=== PATIENT | female | born 1960 | race Caucasian/White ===

== ENCOUNTER 2019-07-31 01:19 | Inpatient (IN) | payer OTHER, MEDICARE ==
[2019-07-31] VITALS (7 sets, daily range): BP systolic 129–162; BP diastolic 45–84
[~2019-07-31] VITALS: Ht 152.4 cm; Wt 80.8 kg
[~2019-07-31 01:19] MED LIST: 8 HOUR PAIN RE650 M1 PO; ALBUTEROL INH INH; ALBUTEROL2.5 MG/31 INH; ALLERCLEAR10 MG PO; ALPRAZOLAM 0.50.5 M1 PO; ASPIRIN325 PO; ATORVASTATIN CA40 MG PO; AUGMENTIN 875-1 EACH PO; AUGMENTIN 875875 M1 PO; BIAXIN 250MG T250 M1; BIOTIN300 MCG PO; BUPRENORPHINE HC8 MG PO; CLOPIDOGREL75 MG PO; COREG6.25 MG PO; DIFLUCAN40 MG/1 ML PO; DOXEPIN 10 MG C10 MG PO; DOXYCYCLINE 10100 MG PO; DUONEB 2.5-0.5 M3 ML INH; HYDROXYZINE HCL10 M1 PO; HYDROXYZINE HCL25 M1 PO; IBUPROFEN 200200 M1 PO; IBUPROFEN 800800 M1 PO; IBUPROFEN200 M2; INSULIN; KEPPRA 500 MG500 MG PO; LANTUSSOLASTAR SUBQ; LASIX 20 MG TAB20 MG PO; LEVAQUIN 750 M750 MG PO; LISINOPRIL20 MG PO; LYRICA 75 MG CA75 MG PO; METHADONE HCL 110 MG PO; METHADONE HCL40 MG PO; MIRALAX17 GM PO; NEURONTIN 300300 M1 PO; NICODERM CQ1 EAC1 TRANSDERM; PREDNISONE 10 M10 M1 PO; PREDNISONE 10 M10 MG PO; PREDNISONE 20 M20 MG PO; PREDNISONE50 MG PO; PROAIR HFA8.5 GM; PROAIR HFA8.5 GM INH; RESTORIL30 MG PO; SINGULAIR 10 MG10 M1 PO; SINGULAIR4 MG; STERAPRED DS10 MG; TESSALON PERLE100 MG PO; TOPROL XL100 MG PO; TYLENOL325 MG PO; ULTRACET TABLE1 EACH PO; VENTOLIN HFA 1818 GM INH; VICTOZA0.6 MG/0.1 SQ; VICTOZA0.6 MG/0.1 SUBQ; XANAX 0.25 MG0.25 MG PO; ZESTRIL30 MG PO; ZOFRAN ODT4 MG DISSOLVE; ZPAK PO
[2019-07-31 02:07] LABS: HEMATOCRIT 47.4 % (37.0-47.0); HEMOGLOBIN 15.3 gm/dL (12.0-15.0); MCH 28.7 pg (26.0-34.0); MCHC 32.3 g/dL (28.0-37.0); MPV 7.7 fl. (7.2-11.1); NUCLEATED RBCS 0 /100WBC; PLATELET COUNT* 232 thou/uL (150-400); RBC 5.32 mil/uL (4.20-5.00); RDW-CV 13.7 % (10.5-14.5); WBC 21.3 thou/uL (4.0-11.0)
[2019-07-31 02:12] LABS: INR 1.1
[2019-07-31 02:19] LABS: PO2 94.5 mmHg (75.0-100.0)
[2019-07-31 02:21] LABS: PCO2 50.2 mmHg (35.0-45.0); pH 7.298 (7.340-7.450)
[2019-07-31 02:25] LABS: CALCIUM 8.9 mg/dL (8.5-10.1); CREATININE 2.2 mg/dL (0.6-1.3); POTASSIUM 4.6 mmol/L (3.5-5.1)
[2019-07-31 02:39] LABS: ALBUMIN 3.1 g/dL (3.4-5.0); TOTAL PROTEIN 6.3 g/dL (6.4-8.2)
[2019-07-31 04:07] LABS: ABSOLUTE LYMPHOCYTES 3.2 thou/uL (0.8-5.3); ABSOLUTE MONOCYTES 1.5 thou/uL (0.0-1.2); ABSOLUTE NEUTROPHILS 16.6 thou/uL (1.6-8.1)
[2019-07-31 04:08] LABS: PLATELET ESTIMATE ADEQUATE
[2019-07-31 11:28] LABS: URINE BILIRUBIN NEGATIVE (Negative); URINE BLOOD 3+ (Negative); URINE CLARITY CLEAR; URINE COLOR YELLOW; URINE GLUCOSE-RANDOM NEGATIVE (Negative); URINE KETONES NEGATIVE (Negative); URINE LEUKOCYTES-REFLEX 3+ (Negative); URINE NITRITE-REFLEX NEGATIVE (Negative); URINE PROTEIN TRACE (Negative); URINE UROBILINOGEN 0.2 E.U./dl (0.2-1.0)
[2019-07-31 11:38] LABS: BACTERIA-REFLEX 1-9 Few /HPF (None Seen); CRYSTALS None Seen /LPF (None Seen); MUCUS None Seen strn/LPF (None Seen); RBC CASTS 0-3 /LPF; SQUAMOUS 0-3 Few /LPF (0-3); URINE RBC >20 Many /HPF (0-2); URINE WBC-REFLEX >25 Many /HPF (0-5)
[2019-07-31 16:52] LABS: AMP/METHAMP Negative (Negative); BARBITURATES Negative (Negative); BENZODIAZEPINES POSITIVE (Negative); COCAINE Negative (Negative); METHADONE Negative (Negative); OPIATES POSITIVE (Negative); PCP Negative (Negative); THC Negative (Negative)
[2019-08-01] VITALS: BP 109/51
[2019-08-01 04:00] VITALS: BP 146/47
[2019-08-01 05:29] LABS: HEMATOCRIT 38.3 % (37.0-47.0); MCH 28.4 pg (26.0-34.0); MCHC 31.9 g/dL (28.0-37.0); MPV 7.8 fl. (7.2-11.1); RBC 4.31 mil/uL (4.20-5.00); RDW-CV 13.9 % (10.5-14.5); WBC 21.6 thou/uL (4.0-11.0)
[2019-08-01 05:35] LABS: HEMOGLOBIN 12.2 gm/dL (12.0-15.0)
[2019-08-01 05:39] LABS: ALBUMIN 1.9 g/dL (3.4-5.0); CALCIUM 7.2 mg/dL (8.5-10.1); CREATININE 1.7 mg/dL (0.6-1.3); POTASSIUM 4.5 mmol/L (3.5-5.1); TOTAL BILIRUBIN 0.4 mg/dL (<0.1-1.0); TOTAL PROTEIN 5.7 g/dL (6.4-8.2)
[2019-08-01 11:21] VITALS: BP 130/82
--- NOTE | 2019-08-01 11:32 | EKG ---
[place] [address] ELECTROCARDIOGRAM REPORT Name: ANIL PAYNE Room: [address] ADM IN [facility]#: [id number] Admission: 07/31/19 Attend Phys: Brenden Tate MD Discharge: Date of : 56 Report #: [id number] THIS REPORT FOR: //name// [facility] ED Test Date: 2019-07-31 Test Time: 01:27:15 Pat Name: ANIL PAYNE Department: Room: 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[id number] Requested By: Regino Alberts Order Number: [id number] MD: Tl Holden Measurements Intervals [place] Rate: 90 P: 74 RI: 131 QRS: 42 QRSD: 134 T: 26 QT: 370 QTc: 453 Interpretive Statements Sinus rhythm Probable left atrial enlargement Right bundle branch block Baseline wander in lead(s) V1 Compared to ECG 05/27/2017 14:44:14 Right bundle-branch block now present Atrial premature complex(es) no longer present Electronically Signed On 08-01-2019 11:32:04 MANUFACTURING SUPERVISOR by Tl Holden [email or web address] <ELECTRONICALLY SIGNED> By: Tl Holden MD, [facility] 08/01/19 1132 0127 [id number] Tl Holden MD, [facility] /EPI
[2019-08-01 17:39] VITALS: BP 147/74
[2019-08-01 20:00] VITALS: BP 153/64
[2019-08-02] VITALS: BP 157/56
[2019-08-02 04:00] VITALS: BP 125/60
[2019-08-02 08:00] VITALS: BP 145/74
[2019-08-02 10:35] LABS: ABSOLUTE BASOPHILS 0.1 thou/uL (0.0-0.2); ABSOLUTE EOSINOPHILS 0.4 thou/uL (0.0-0.7); ABSOLUTE LYMPHOCYTES 0.8 thou/uL (0.8-5.3); ABSOLUTE MONOCYTES 0.5 thou/uL (0.0-1.2); ABSOLUTE NEUTROPHILS 14.4 thou/uL (1.6-8.1); BASOPHILS 0.4 %; EOSINOPHILS 2.7 %; HEMATOCRIT 36.5 % (37.0-47.0); HEMOGLOBIN 11.9 gm/dL (12.0-15.0); MCH 28.8 pg (26.0-34.0); MCHC 32.4 g/dL (28.0-37.0); MCV 88.8 fL (80.0-100.0); MONOCYTES 2.9 %; MPV 7.9 fl. (7.2-11.1); NUCLEATED RBCS 0 /100WBC; PLATELET COUNT* 201 thou/uL (150-400); RBC 4.11 mil/uL (4.20-5.00); RDW-CV 14.4 % (10.5-14.5); WBC 16.2 thou/uL (4.0-11.0)
[2019-08-02 10:43] LABS: CALCIUM 6.7 mg/dL (8.5-10.1); CREATININE 1.4 mg/dL (0.6-1.3); POTASSIUM 4.7 mmol/L (3.5-5.1)
[2019-08-02 10:57] LABS: ALBUMIN 1.8 g/dL (3.4-5.0); TOTAL BILIRUBIN 0.3 mg/dL (<0.1-1.0); TOTAL PROTEIN 5.8 g/dL (6.4-8.2)
[2019-08-02 11:32] VITALS: BP 157/61
--- NOTE | 2019-08-02 11:32 | CON ---
[address] [address] CONSULTATION Name: ANIL PAYNE Room: [address] [place] [facility]#: [id number] Admission: 07/31/19 Attend Phys: Brenden Tate MD Discharge: Date of : 56 Report #: [id number] THIS REPORT FOR: //name// CC: [facility] Brenden Rivero DATE OF SERVICE: 07/31/2019 REASON FOR CONSULTATION: Right obstructing ureteropelvic junction stone. HISTORY OF PRESENT ILLNESS: The patient is a 59-year-old female with significant COPD, who presented last night to the ER with right flank pain. She at that point had nausea, but no fever or chills or vomiting. She has no prior history of stones. CT scan showed 11 x 7 x 12 mm right UPJ stone resulting in hydronephrosis with forniceal rupture. She was also noted to have left renal nonobstructive stone, largest 5 mm. The patient spiked a temperature this morning of 100.1. LABORATORY DATA: Labs on admission showed a white count of 21.3. Urinalysis has not yet been done. Creatinine is up to 2.2. It looks like her baseline is around 1.2 to 1.5. I was not notified of her admission until this morning about an hour ago. PAST MEDICAL HISTORY: Includes COPD, hypertension, hyperlipidemia, diabetes, diabetic neuropathy, and Charcot foot. PAST SURGICAL HISTORY: Includes lap band, hysterectomy, incision and drainage of labial abscess. CURRENT MEDICATIONS: Reviewed. Please see inpatient medical record. ALLERGIES: None. FAMILY HISTORY: Noncontributory. SOCIAL HISTORY: The patient is a tobacco, cigarette user. She denies any alcohol or drug use. REVIEW OF SYSTEMS: Twelve-point review of systems is performed and is negative except as noted above in HPI. PHYSICAL EXAMINATION: VITAL SIGNS: Temperature 37.1, pulse 88, blood pressure 158/60, respirations 18. She is 95% on 3 liters. GENERAL: She is a well-developed, well-nourished [place]. [place] [address] CONSULTATION Name: ANIL PAYNE Paolo Room: [address] [place] [facility]#: [id number] Admission: 07/31/19 Attend Phys: Brenden Tate MD Discharge: Date of : 56 Report #: [id number] distress due to pain and appears ill. HEENT: Normocephalic, atraumatic. RESPIRATIONS: Unlabored. HEART: Regular. ABDOMEN: Soft, nondistended with tenderness on the right side. BACK: She has right CVA tenderness, none on the left. SKIN: Pale and mottled. EXTREMITIES: Without cyanosis or edema. SKIN: Without rashes. LABORATORY DATA: White count 21.3, hemoglobin 15.3, platelets 232. Her sodium 138, potassium 4.6, chloride 99, CO2 27, BUN 27, creatinine 2.2, glucose 138. Her lactic acid last night was 1.4. Urinalysis has been ordered, but has not yet received. Blood cultures have been taken and are pending. CT was reviewed and is as above per HPI. ASSESSMENT: 1. Right ureteropelvic junction large obstructing stone. 2. Developing likely urosepsis. 3. Acute renal failure. PLAN: The patient needs emergent right ureteral stent placement. I discussed with the patient and her significant other. This will be needed along with antibiotic therapy until she is recovered. Once she has recovered completely from her illness and completed full antibiotic course, she will need stone treatment. They understand the stent is not a permanent structure and how important followup is. We will send her urine intraoperatively for culture. Discussed gravity of the situation, the patient's understands and the patient wishes to proceed with procedure. <ELECTRONICALLY SIGNED> By: Ava Thibodeaux MD 08/02/19 1132 0949 [id number] Thibodeaux MD /nt
--- NOTE | 2019-08-02 11:34 | OP ---
[address] [address] OPERATIVE REPORT Name: ANIL PAYNE Room: [address] IN .R.#: [id number] Admission: 07/31/19 Attend Phys: Brenden Tate MD Discharge: Date of : 56 Report #: [id number] THIS REPORT FOR: //name// CC: Brenden Rivero DATE OF SERVICE: 07/31/2019 PREOPERATIVE DIAGNOSES: Right proximal obstructing large ureteral stone, fever, urosepsis. POSTOPERATIVE DIAGNOSES: Right proximal obstructing large ureteral stone, fever, urosepsis. PROCEDURE: Cystourethroscopy, right retrograde pyelogram, right ureteral stent placement (6 x 28). SURGEON: Ava Thibodeaux MD ANESTHESIA: General. ESTIMATED BLOOD LOSS: Minimal. COMPLICATIONS: None. SPECIMENS: Urine for culture and sensitivity. INDICATIONS FOR PROCEDURE: The patient is a 59-year-old female with multiple comorbidities including significant COPD, who presented with right flank pain and a large proximal obstructing ureteral stone. Her white count was elevated and she had a fever this morning. Emergent stent placement was indicated. Risks of procedure were discussed with the patient and her including risk of infection, bleeding; injury to the urethra, bladder, or ureter; need for secondary procedures, stent pain, cardiopulmonary complications or even . They voiced understanding and she wished to proceed. DESCRIPTION OF PROCEDURE: After informed consent was obtained, the patient was taken back to the operating suite and placed supine. After induction of general anesthesia, she was placed in dorsal lithotomy position. Genitalia prepped and draped in standard fashion. Rigid cystoscopy was performed. Urethra and bladder mucosa were inspected and were normal except for some mild hyperemia of the trigone. She had no evidence of any bladder tumors. Orifices were in orthotopic position. Retrograde was first performed on the right side with a cone tip catheter. It was difficult to get the contrast to pass past the proximal ureter and immediately, the retrograde did not look normal. I was able to get a bit of her upper pole to fill out, [place] [address] OPERATIVE REPORT Name: ANIL PAYNE Room: [address] IN [facility]#: [id number] Admission: 07/31/19 Attend Phys: Brenden Tate MD Discharge: Date of : 56 Report #: [id number] hydronephrotic and she appeared to already have some extravasation around the kidney. She did have forniceal rupture noted on CT scan, so this is likely explanation for that finding. I threaded the wire then, a sensor wire up into the ureter, past the stone with some difficulty. It took a sharp turn laterally and I could not tell if this was going into a lower pole or if this was actually outside the kidney. I threaded the 5-Macedonian ureteral catheter over the wire, removed the wire and injected contrast again. Again, it was difficult to get this collecting system to fill out as there was a decent amount of extravasation. With manipulation, I put the wire back through the 5-Macedonian open-ended catheter and with difficulty, I was able to finally get it to go into the upper pole where there was good contrast opacification. So, I was confident that the wire was in the upper pole at that point. We removed the open-ended catheter and then removed the scope and threaded a dual lumen to inject some additional contrast to see if I could get this to opacify further, as her retrograde just still does not look normal. This did confirm some contrast in her kidney and the wire could clearly be seen in the upper pole, but her proximal ureter definitely did not look normal and it was difficult to get that to fill out with contrast, but given that wire had traversed the area and was in the upper pole, I felt it was okay to just go ahead and place the stent. A 6-Macedonian x 28 cm double-J stent was threaded over the wire. Good curl was seen within the upper pole and good curl was seen within the bladder under direct visualization. I could see still some extravasation along the retroperitoneum along the ureter and some medial to the kidney, so I question whether maybe she had an area of extravasation where the stone had been due to impaction, but nevertheless, the stent was able to be placed and we will just have to let her heal and continue antibiotics. Likely, I will leave leave her stent for a prolonged period before attempting ureteroscopy, given difficulty with placement today. The scope was removed and a 16-Macedonian Will catheter was placed to dependent drainage. B and O suppository 60 mg was placed per rectum for postoperative discomfort. She was awoken, extubated, and taken to recovery in serious but stable condition. She will be admitted back to telemetry as long as her vitals remained stable. If not, she will be transferred to the ICU, but as of time in recovery room, her vitals were remaining stable. <ELECTRONICALLY SIGNED> By: Ava Thibodeaux MD 08/02/19 1134 1047 [id number] Thibodeaux MD /nt
[2019-08-02 20:00] VITALS: BP 181/79
[2019-08-03 04:00] VITALS: BP 189/81
[2019-08-03 05:30] VITALS: BP 156/77
[2019-08-03 07:26] LABS: ABSOLUTE EOSINOPHILS 0.5 thou/uL (0.0-0.7); ABSOLUTE MONOCYTES 0.9 thou/uL (0.0-1.2); ABSOLUTE NEUTROPHILS 7.5 thou/uL (1.6-8.1); BASOPHILS 0.3 %; EOSINOPHILS 5.5 %; HEMATOCRIT 35.8 % (37.0-47.0); HEMOGLOBIN 11.7 gm/dL (12.0-15.0); LYMPHOCYTES 9.9 %; MCHC 32.8 g/dL (28.0-37.0); MCV 88.3 fL (80.0-100.0); MPV 7.5 fl. (7.2-11.1); NUCLEATED RBCS 0 /100WBC; PLATELET COUNT* 230 thou/uL (150-400); POLYS 75.3 %; RBC 4.05 mil/uL (4.20-5.00); RDW-CV 14.4 % (10.5-14.5)
[2019-08-03 07:40] LABS: CALCIUM 7.2 mg/dL (8.5-10.1); CREATININE 1.2 mg/dL (0.6-1.3); POTASSIUM 4.8 mmol/L (3.5-5.1)
[2019-08-03 08:00] VITALS: BP 159/79
[2019-08-03 10:28] VITALS: BP 159/79
--- NOTE | 2019-08-03 11:24 | CON ---
[address] [address] CONSULTATION Name: ANIL PAYNE Room: [address] IN .R.#: [id number] Admission: 07/31/19 Attend Phys: Brenden Tate MD Discharge: Date of : 56 Report #: [id number] THIS REPORT FOR: //name// CC: Brenden Bonilla [facility] DATE OF SERVICE: 08/02/2019 INFECTIOUS DISEASE CONSULTATION ATTENDING PHYSICIAN: Brenden Tate M.D. REASON FOR EVALUATION: Complicated urinary tract infection with obstructive uropathy, proximal right renal ____ ureteral obstructing stone with pyelonephritis. Chart reviewed. Patient examined. HISTORY OF PRESENT ILLNESS: This is a 59-year-old woman with longstanding COPD, O2 requiring, who presented to the Emergency Room with complaints of right upper quadrant and right flank pain, somewhat abrupt onset the day prior to her presentation with associated nausea. It is not clear if she had any fevers. She underwent evaluation, lactic acid was 1.4. CT of the abdomen and pelvis showed right obstructive uropathy with large obstructing calculus located in the ureteropelvic junction, mild hydronephrosis. She did undergo operative urgency with a cystourethroscopy, right retrograde pyelogram, and right ureteral stent placement. She has been placed empirically on piperacillin and tazobactam. Operative cultures are in progress. Blood cultures are sterile thus far. She appears still quite ill. She is not encephalopathic. She is maintained on 3-4 liters of supplemental oxygen per her baseline. ALLERGIES: None known. MEDICATIONS: Include Zosyn, p.r.n. fentanyl, ondansetron, Tylenol, ipratropium and albuterol inhaler. PAST MEDICAL HISTORY: As noted above, O2-requiring COPD, hypertension, previous Lap-Band surgery that she had in [place], has not been able to reverse it, hyperlipidemia, history of recurrent pneumonitis, diabetes mellitus with neuropathy, Charcot foot changes, and atopic dermatitis. SOCIAL HISTORY: Long time smoker, reports recently having quit. No illicit drug use. No ethanol. FAMILY HISTORY: [place] [address] CONSULTATION Name: ANIL PAYNE Room: [address]#: [id number] Admission: 07/31/19 Attend Phys: Brenden Tate MD Discharge: Date of : 56 Report #: [id number] REVIEW OF SYSTEMS: Denies significant gastrointestinal-related complaints. PHYSICAL EXAMINATION: GENERAL: She appears chronically ill, undernourished, pleasant and cooperative. VITAL SIGNS: Temperature 97.8, pulse 78, respirations 17, blood pressure 157/61. SKIN: Warm and dry. No rashes. HEENT: Nasal cannula oxygen in place. Normocephalic. Extraocular muscles intact. NECK: Supple. LUNGS: Scattered coarse breath sounds, diminished overall. HEART: Regular. I do not appreciate a murmur. ABDOMEN: Soft, nontender, and nondistended. GENITOURINARY AND RECTAL: Deferred. LABORATORY DATA: Electrolytes: Sodium 140, potassium 4.7, chloride 108, bicarbonate 21, anion gap of 11, BUN and creatinine 28 and 1.4, glucose of 148, albumin of 1.8, total protein 5.8. LFTs are unremarkable. White count today is 16.2, H and H 11.9 and 36.5, and platelets of 201. Blood cultures are sterile thus far from the 24th. Prealbumin is low at 12.3. Drug screen is positive for benzodiazepines as well as opiates. ASSESSMENT AND PLAN: Complicated urinary tract infection with obstructive uropathy, right proximal stone remains quite tenuous at this point. We will continue parenteral therapy, potentially transition to oral antibiotics prior to her discharge, which I expect in the next 1-2 days. She is maintained on her baseline oxygen, although she is certainly at risk for infectious complications including pneumonitis. We will add incentive spirometry. In all likelihood, she will need a couple of weeks of antimicrobial therapy. <ELECTRONICALLY SIGNED> By: Young Rodríguez MD 08/03/19 1124 1145 [id number] Rodríguez MD /nt
[2019-08-03] MEDS ORDERED: AUGMENTIN 875-1 EACH PO (12:00)
[2019-08-03] MEDS ORDERED: DIFLUCAN200 MG PO (12:04)
[2019-08-03 12:20] VITALS: BP 192/96
== END 2019-08-03 12:30 | disposition home or self-care (01) | DRG 853 ==
LOC: M.ERS 01:19 → M.TBA-ER 04:09 → M.2W 04:09
PROVIDERS: Emergency Medicine; Surgery; ADMIT Internal Medicine
PROC: 0T768DZ Dilation of Right Ureter with Intraluminal Device, Via Natural or Artificial Opening Endoscopic (ICD-10-PCS; principal; 2019-07-31)
PROC: BT1D1ZZ Fluoroscopy of Right Kidney, Ureter and Bladder using Low Osmolar Contrast (ICD-10-PCS; principal; 2019-07-31)
DX: A41.9 Sepsis, unspecified organism (principal); J96.21 Acute and chronic respiratory failure with hypoxia; J96.22 Acute and chronic respiratory failure with hypercapnia; N17.9 Acute kidney failure, unspecified; N13.6 Pyonephrosis; J44.9 Chronic obstructive pulmonary disease, unspecified; I10 Essential (primary) hypertension; E78.5 Hyperlipidemia, unspecified; E11.40 Type 2 diabetes mellitus with diabetic neuropathy, unspecified; K80.20 Calculus of gallbladder without cholecystitis without obstruction; L20.9 Atopic dermatitis, unspecified; F17.210 Nicotine dependence, cigarettes, uncomplicated; N13.9 Obstructive and reflux uropathy, unspecified; E11.51 Type 2 diabetes mellitus with diabetic peripheral angiopathy without gangrene; Z90.710 Acquired absence of both cervix and uterus; Z79.899 Other long term (current) drug therapy

== ENCOUNTER → 2019-08-25 | Day surgery (SDC) | payer OTHER, MEDICARE ==
[~2019-08-25] MED LIST changes: +ASPIR-LOW81 MG PO; +DIFLUCAN200 MG PO; +DUPIXENT300 MG/2 M SUBQ; +LEVEMIR100 UNIT/1 SUBQ; +LEVSIN-SL0.125 MG SUBLING; +NORCO 5-325 TA1 EAC2 PO
--- NOTE | 2019-08-25 17:54 | OP ---
[facility] [address] [place] [address] OPERATIVE REPORT Name: ANIL PAYNE Room: [facility]#: [id number] Admission: 08/25/19 Attend Phys: Ava Thibodeaux, Discharge: Date of : 56 Report #: [id number] THIS REPORT FOR: //name// CC: [facility] Ava Thibodeaux DATE OF SERVICE: 08/25/2019 PREOPERATIVE DIAGNOSIS: Right ureteral stone. POSTOPERATIVE DIAGNOSIS: Right ureteral stone. PROCEDURE: Cystourethroscopy, right ureteral stent removal, right retrograde pyelogram, right ureteroscopy, laser lithotripsy, basket extraction of stone and right ureteral stent placement (6-Guyanese x 26 cm). SURGEON: Ava Thibodeaux M.D. ANESTHESIA: General. ESTIMATED BLOOD LOSS: None. COMPLICATIONS: None. SPECIMENS: Stone. INDICATIONS FOR PROCEDURE: The patient is a 59-year-old female who underwent right ureteral stent placement on 07/31/2019 for an infected stone. She has completed antibiotic therapy and presents now for stone treatment. Risks of procedure were discussed including but not limited to infection, bleeding, injury to urethra, bladder, ureter, need for secondary procedures, stent pain, cardiopulmonary complications. Voiced understanding and wished to proceed. DESCRIPTION OF PROCEDURE: After informed consent was obtained, the patient was taken back to the operating suite and placed supine. After induction of general anesthesia, she was placed in dorsal lithotomy position. Genitalia prepped and draped in standard fashion. Rigid cystoscopy was performed. Urethra and bladder mucosa were normal. Ureteral orifices were orthotopic in position. The stent was seen protruding from the right UO and was externalized at the meatus. There was no encrustation. A sensor wire was threaded through the stent up into the kidney without difficulty. The stone could be seen on x-ray and had migrated into the renal pelvis. Using a dual lumen, a retrograde was performed and this revealed a normal retrograde with the exception of the filling defect of the stone in the renal pelvis. A second wire was placed. The dual lumen was removed and the 08/20 ureteral access sheath was placed[place] [address] OPERATIVE REPORT Name: ANIL PAYNE Room: [facility]#: [id number] Admission: 08/25/19 Attend Phys: Ava Thibodeaux, Discharge: Date of : 56 Report #: [id number] Flexible scope was advanced up into the kidney. She did have some edema of the proximal ureter and UPJ area. The stone was encountered in the renal pelvis and blew back into the upper pole. This is where it was lasered with the holmium laser into small fragments. Pieces were basketed with the 0 tip nitinol basket and extracted and sent for specimen. Anything remaining was dusted and should be passable. All calices were then carefully inspected. There were no other stones seen. The scope was backed out under direct vision along with the sheath, there was no injury from the sheath. Prior to removing the scope, I injected contrast again to delineate the collecting system for stent placement. This revealed no extravasation or filling defects. A 6-Guyanese x 26 cm double-J stent was threaded over the remaining safety wire. The curl was seen within the renal pelvis under fluoroscopy and good curl was seen within the bladder once the cystoscope was reintroduced. The bladder was then drained and the scope was removed, 5 mL lidocaine jelly were placed per urethra for local anesthesia and a 60 mg B and O suppository was placed per rectum for postoperative discomfort. She was awoken, extubated, and taken to recovery in satisfactory condition. She will be dismissed home and follow up with me in 1-2 weeks with a KUB for stent removal. <ELECTRONICALLY SIGNED> By: Ava Thibodeaux MD 08/25/19 1754 1337 [id number] Thibodeaux MD /nt
== END | disposition home or self-care (01) ==
LOC: M.SUR 06:28
DX: N20.1 Calculus of ureter (principal); I11.0 Hypertensive heart disease with heart failure; I50.9 Heart failure, unspecified; E11.40 Type 2 diabetes mellitus with diabetic neuropathy, unspecified; E78.5 Hyperlipidemia, unspecified; J44.9 Chronic obstructive pulmonary disease, unspecified; Z98.890 Other specified postprocedural states; Z79.899 Other long term (current) drug therapy; Z79.82 Long term (current) use of aspirin; Z90.710 Acquired absence of both cervix and uterus; Z87.01 Personal history of pneumonia (recurrent); Z87.891 Personal history of nicotine dependence

== ENCOUNTER 2020-01-28 20:19 | Inpatient (IN) | payer OTHER, MEDICARE ==
[~2020-01-28] VITALS: Ht 157.5 cm; Wt 73.0 kg
[2020-01-28 20:20] VITALS: BP 157/54
[2020-01-28 20:47] LABS: ABSOLUTE BASOPHILS 0.1 thou/uL (0.0-0.2); ABSOLUTE LYMPHOCYTES 3.7 thou/uL (0.8-5.3); ABSOLUTE MONOCYTES 0.3 thou/uL (0.0-1.2); ABSOLUTE NEUTROPHILS 8.3 thou/uL (1.6-8.1); BASOPHILS 0.9 %; EOSINOPHILS 0.3 %; HEMOGLOBIN 12.7 gm/dL (12.0-15.0); LYMPHOCYTES 29.6 %; MCH 28.4 pg (26.0-34.0); MCV 91.7 fL (80.0-100.0); MONOCYTES 2.3 %; MPV 7.8 fl. (7.2-11.1); NUCLEATED RBCS 0 /100WBC; PLATELET COUNT* 231 thou/uL (150-400); POLYS 66.9 %; RBC 4.47 mil/uL (4.20-5.00); RDW-CV 15.6 % (10.5-14.5); WBC 12.4 thou/uL (4.0-11.0)
[2020-01-28 20:59] LABS: APTT 24.7 Seconds (25.0-31.3); PROTIME 10.7 Seconds (9.20-11.50)
[2020-01-28 21:01] LABS: CREATININE 2.6 mg/dL (0.6-1.3)
[2020-01-28 21:04] LABS: POTASSIUM 8.2 mmol/L (3.5-5.1)
[2020-01-28 21:15] LABS: ALBUMIN 2.7 g/dL (3.4-5.0); CK-MB MASS 0.8 ng/mL (<0.5-3.6); MAGNESIUM 2.2 mg/dL (1.8-2.4); TOTAL BILIRUBIN 0.5 mg/dL (<0.1-1.0); TOTAL PROTEIN 5.3 g/dL (6.4-8.2)
[2020-01-28 21:37] LABS: CALCIUM 7.6 mg/dL (8.5-10.1); CREATININE 2.5 mg/dL (0.6-1.3)
[2020-01-28 21:41] VITALS: BP 69/52
[2020-01-28 21:42] LABS: POTASSIUM 7.9 mmol/L (3.5-5.1)
[2020-01-28 22:13] LABS: BE -13.7 mmol/L (-2 to +3); PO2 90.1 mmHg (75.0-100.0)
[2020-01-28 22:19] LABS: PCO2 58.3 mmHg (35.0-45.0)
[2020-01-28 23:08] VITALS: BP 84/46
[2020-01-29] VITALS (22 sets, daily range): BP systolic 80–123; BP diastolic 36–65
[2020-01-29] MEDS ORDERED: PREGABALIN50 MG PO (03:49)
[2020-01-29] MEDS ORDERED: METFORMIN HCL500 M3 PO (03:50)
[2020-01-29] MEDS ORDERED: NORVASC 2.5 MG2.5 M1 PO (03:51)
[2020-01-29] MEDS ORDERED: CARVEDILOL12.5 MG PO (03:52)
[2020-01-29] MEDS ORDERED: ESCITALOPRA5 MG/5 ML PO (03:52)
[2020-01-29] MEDS ORDERED: ROSUVASTATIN CA40 MG PO (03:53)
[2020-01-29] MEDS ORDERED: FENOFIBRATE160 MG PO (03:54)
[2020-01-29] MEDS ORDERED: HYDRALAZINE 5050 MG PO (03:54)
[2020-01-29] MEDS ORDERED: PREDNISONE 5 MG5 M1 PO (03:55)
[2020-01-29 03:56] LABS: ANION GAP 7 mmol/L (7-16); BUN 26 mg/dL (7-18); CHLORIDE 106 mmol/L (98-107); CHOLESTEROL 131 mg/dL (<200); CO2 28 mmol/L (21-32); GLUCOSE 266 mg/dL (70-99); HDL CHOLESTEROL 46 mg/dL (>40); LDL CHOLESTEROL 61 mg/dL (<100); MAGNESIUM 2.1 mg/dL (1.8-2.4); SODIUM 141 mmol/L (136-145); TC:HDL 2.8 Ratio (Not establshd); TRIGLYCERIDE 122 mg/dL (<150); VLDL 24 mg/dL (<40)
[2020-01-29] MEDS ORDERED: LOSARTAN-HCTZ1 EAC3 PO (03:56)
[2020-01-29 03:57] LABS: POTASSIUM 4.8 mmol/L (3.5-5.1)
[2020-01-29 04:45] LABS: SERUM ASSESSMENT Clear
--- NOTE | 2020-01-29 06:02 | NUR ---
PACEMAKER PACING EXPECTED, NO CHANGE IN R GROIN ACCESS SITE. PT STARTED ON ON DOPAMIN AND AT 8MCG/KG/MIN TO KEEP SYSTOLIC BP>95. TITRATED O2 UP TO 5L PER NC PER DEMAND. AFEBRILE, PT ALERT AND ORIENTED AT THIS TIME. SLEPT THROUGH THE NIGHT. DENIES PAIN. 300 CC UOP, NO BM. OTHERWISE UNEVENTFUL NIGHT. WILL CONTINUE MONITORING.
[2020-01-29 08:12] LABS: BE -0.4 mmol/L (-2 to +3); PCO2 VENOUS 51.8 mmHg (41.0-51.0); PO2 VENOUS 101.7 mmHg (35.0-45.0)
[2020-01-29 08:30] LABS: ALBUMIN 2.6 g/dL (3.4-5.0); CREATININE 1.6 mg/dL (0.6-1.3); MAGNESIUM 2.1 mg/dL (1.8-2.4); POTASSIUM 4.8 mmol/L (3.5-5.1); TOTAL BILIRUBIN 0.4 mg/dL (<0.1-1.0); TOTAL PROTEIN 5.6 g/dL (6.4-8.2)
--- NOTE | 2020-01-29 11:30 | NUR ---
TEMP PACEMAKER DC'D BY DR CIFUENTES. PT NSR, VSS. HE ALSO DC'd RT. FEM ARTERIAL LINE AND CENTRAL LINE, PRESSURE APPLIED FOR 10 MINS. GAUGE DSG APPLIED WITH A TRANSPARENT COVER. PT TO BE IMMOBILISED FOR FOUR MORE HOURS.
--- NOTE | 2020-01-29 13:15 | EKG ---
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 : 1960 Requested By: Suman Wheeler Order Number: [id number] MD: Tl Holden Measurements Intervals [place] Rate: 0 P: 0 HI: QRS: 0 QRSD: T: QT: QTc: 0 Interpretive Statements asystole with ventricular escape beats No further analysis attempted - not enough leads could be measured Compared to ECG 07/31/2019 01:27:15 Sinus rhythm no longer present Right bundle-branch block no longer present Electronically Signed On 01-29-2020 13:13:57 CDT by Tl Holden [email or web address] <ELECTRONICALLY SIGNED> By: Tl Holden MD, FAC 01/29/20 1313 20 20 Tl Holden MD, FAC /EPI
--- NOTE | 2020-01-29 19:43 | NUR ---
PT AxO BUT FORGETFUL. VSS. O2 TITRATED DOWN TO 3L/MIN. OUT OF BED WITH MIN ASSIST x1. ALMANZA'S CATH OUT, PT HAS VOIDED POST CATH REMOVAL. TOLERATING DIET. BM TODAY. NO HEMATOMA AT GROIN SITE, DSG CDI. DISTAL PULSES PRESENT. ASSISTED WITH BATH.
[2020-01-30] VITALS (18 sets, daily range): BP systolic 100–128; BP diastolic 49–96
--- NOTE | 2020-01-30 00:46 | NUR ---
WHILE ASSISTING PT TO BSC, THIS RN NOTED 2 BLUE TABLETS IN BEDDING. USING WEB-BASED PILL IDENTIFIER, TABLETS IDENTIFIED XANAX 1MG TABS. PT ASKED IF SHE HAS BEEN TAKING ANY MEDICATIONS FROM HOME, SHE REPLIED "I COULDN'T SLEEP SO I TOOK TWO XANAX." PT INFORMED THAT TAKING HOME MEDICATIONS WITHOUT THE PHYSICIANS KNOWLEDGE COULD LEAD TO DEADLY DRUG INTERACTIONS OR THE POSSIBILITY OF RECEIVING UNNEEDED TREATMENTS BASED ON THE EFFECTS OF THE MEDICATION THE PHYSICIAN IS UNAWARE SHE HAS BEEN TAKING, VERBALIZED UNDERSTANDING THEN STATED "I JUST COULDN'T SLEEP. SO I WAS GOING TO TAKE TWO, BUT I MAY NOT HAVE TAKEN THEM IF THEY WERE IN THE BED BECAUSE I KNOW I ONLY TOOK TWO OUT OF THE BOTTLE." PT INFORMED THAT HER NURSE, AUDRA, COULD HAVE CALLED THE DR TO REQUEST HER HOME XANAX DOSE FOR SLEEP OR AN ANTERNATIVE, VERBALIZED UNDERSTANDING. PT IS GROGGY WITH SOME SLURRING OF SPEECH. TIM HENNESSYHERBARIUM CURATOR NOTIFIED, AND REQUESTED PILL BOTTLES BE LOCATED SO THEY CAN BE SENT TO PHARMACY. GERA GILLESPIE FOUND NEXT TO HER BED, REMOVED FROM ROOM. SECURITY TO ICU TO REMOVE PILL BOTTLES FROM JOSE MIGUEL, XANAX 1MG TABS AND BUPRENORPHINE 8MG LOCATED. QUANTITY IN BOTH BOTTLES APPEARS TO BE APPROPRIATE FOR PRESCRIBED DOSING AND TIME SINCE FILL DATE SUGGESTING PT TAKES THESE PRESCRIBED. BOTTLES PLACED IN BAG, LABELED, GIVEN TO HOUSE SUP FOR TRANSPORT TO PHARMACY. PT THEN BECAME TEARFUL, STATING SHE FEELS LIKE A CRIMINAL AND IS NOT SURE SHE WANTS TO STAY. PT INFORMED THAT WERE SHE AT HOME, THERE WOULD BE NOTHING WRONG WITH HER ACTION BUT THAT IN THE HOSPITAL IT CAN INTERFERE WITH HER TREATMENT AND SAFETY, VERBALIZED UNDERSTANDING. PT STATED "I DIDN'T KNOW. I JUST WANTED TO GET SOME SLEEP." AFTER SPEAKING WITH PT AND ANSWERING QUESTIONS SHE STATES SHE KNOWS SHE SHOULD STAY AND SPEAK WITH DRS TOMORROW. CALL LIGHT WITHIN REACH.
--- NOTE | 2020-01-30 02:13 | NUR ---
PATIENT WAS ASSISTED TO [facility] BY KOFFI LEDEZMA WHEN 2 BLUE PILLS WERE FOUND IN HER BED. PILLS WERE IDENTIFIED AT XANAX 1MG. THE PATIENT WAS ASKED ABOUT THE PILLS TO WHICH SHE RESPONDED "I COULDN'T SLEEP SO I TOOK A COUPLE OF PILLS." THIS MEDICAITON WAS NOT ORDERED BY ANY PHYSICIAN IN THE HOSPITAL. THE PATIENT HAD BEEN DROWSY AND DIFFICULT TO AROUSE SINCE HER ADMISSION AND THERE HAS BEEN CONCERN FOR THIS. SECURITY WAS CALLED TO INSPECT THE PATIENT'S PURSE AND REMOVE ANY MEDICATION FOUND. 2 BOTTLES WERE DISCOVERED. 1 OF XANAX AND 1 OF BUPRENORPHINE. BOTH MEDICATIONS WERE SENT WITH DISTRICT SALES MANAGER GERHARD AND LOCKED IN PHARMACY. NOT KNOWING HOW MANY XANAX THE PATIENT TOOK PRIOR TO DISCOVERY, DR. PECK WAS PAGED TO UPDATE HIM OF THE INCIDENT AND OBTAIN ANY ORDERS REGARDING THIS DEVELOPMENT. ORDERS WERE OBTAINED. PATIENT WAS EDUCATED ON THE DANGERS OF SELF MEDICATING IN THE HOSPITAL. PATIENT INTIALLY EXPRESSED THE DESIRE TO LEAVE AMA. AFTER SPEAKING WITH THE PATIENT ABOUT HER FEELINGS ON THE MATTER AND EDUCATING ON THE DANGERS OF DOING SO WITH EVERYTHING THAT HAS HAPPENED SURROUNDING HER ADMISSION; SHE WAS AGREEABLE TO STAY UNTIL SPEAKING WITH HER DOCTOR IN THE MORNING. VSS. WILL CONTINUE TO MONITOR SITUATION
[2020-01-30 03:34] LABS: HEMATOCRIT 36.7 % (37.0-47.0); HEMOGLOBIN 11.9 gm/dL (12.0-15.0); MCH 28.6 pg (26.0-34.0); MCHC 32.4 g/dL (28.0-37.0); MCV 88.4 fL (80.0-100.0); MPV 7.5 fl. (7.2-11.1); RBC 4.15 mil/uL (4.20-5.00); RDW-CV 15.4 % (10.5-14.5)
[2020-01-30 03:48] LABS: ALBUMIN 2.7 g/dL (3.4-5.0); CALCIUM 7.9 mg/dL (8.5-10.1); CREATININE 1.4 mg/dL (0.6-1.3); MAGNESIUM 2.1 mg/dL (1.8-2.4); POTASSIUM 4.7 mmol/L (3.5-5.1); TOTAL BILIRUBIN 0.5 mg/dL (<0.1-1.0); TOTAL PROTEIN 5.9 g/dL (6.4-8.2)
--- NOTE | 2020-01-30 07:14 | NUR ---
ASSESSMENTS CHARTED. PATIENT'S HR STABLE POST PACEMAKER REMOVAL. R GROIN INSERTION SITE CLEAN DRY AND INTACT. VSS. SEE PREVIOUS NOTES FOR DETAILS ON PREVIOUS EVENT. NO OTHER SIGNIFICANT EVENTS THIS SHIFT. NEURO CHECKS Q1H PER DR. PECK.
[2020-01-30] MEDS ORDERED: XANAX1 MG PO (07:30)
[2020-01-30] MEDS ORDERED: HYDROXYZINE HCL25 M2 PO (10:14)
[2020-01-30] MEDS ORDERED: DILTIAZEM ER180 M2 PO (10:17)
[2020-01-30] MEDS ORDERED: COZAAR 25 MG TA25 M1 PO (10:36)
[2020-01-30] MEDS ORDERED: PAXIL40 MG PO (10:37)
--- NOTE | 2020-01-30 10:56 | NUR ---
I ASSUMED CARE OF THE PATIENT AT 0700. SHE IS ALERT AND ORIENTED X4 AND IS UP WITH STAND BY ASSIST TO THE BEDSIDE COMMODE. BED IS IN THE LOW LOCKED POSITION AND CALL LIGHT IS IN REACH. HOURLY ROUNDING IS COMPLETED AND PATIENT NEEDS ARE MET. PAIN IS DENIED. MED REC IS COMPLETED BETWEEN SPEAKING WITH THE PATIENT AND READING MEDICATION LABELS OVER THE PHONE WITH THE . PHYSICIAN IS CONTACTED. PATIENT WILL DISCHARGE TO HOME WITH . SAYS THAT DIFFERENT DOCTORS HAVE WRITTEN THE SCRIPTS AND SHE USES MULTIPLE PHARMACIES. I RECOMMENDED TO HIM THAT SHE HAVE ONE PCP AND USE ONE PHARMACY. SHE IS ABLE TO URINATE AT THE BEDSIDE COMMODE SAFELY. BLOOD SUGAR IS MONITORED AND CONTROLLED WITH ORAL COVERAGE AND LONG ACTING INSULIN. RIGHT GROIN IS C/D/I WITH A PRESSURE DRESSING. WILL CONTINUE TO MONITOR.
--- NOTE | 2020-01-31 09:36 | CARD ---
[address] [address] CARDIAC CATH REPORT Name: ELMER,ANIL Paolo Room: [address]#: [id number] Admission: 01/28/20 Attend Phys: Adilson Cohen MD Discharge: 01/30/20 Date of : 56 Report #: [id number] THIS REPORT FOR: //name// cc: Ava Benitez MD, Elizabeth MD ~ APPROVED REPORT Study performed: 01/28/2020 20:41:12 Patient Status: ED Room #: Event Personnel: Tl Holden Pit Supervisor, Kacye Mejía RN, Renee Baird RTR Scrub, Catherine Arndt RTR Monitor Exam: Temperary Pacemaker Insertion Indications: Sick Sinus Syndrome/Tachy Reggie Syndrome The patient is a 59 year-old female with a history of Syncope. Conscious Sedation No sedation given. Case start was 21:39 and case end was 22:02. Implanted Devices: Temporary pacemaker lead via the right femoral vein, arterial line placement via the right femoral artery, and venous sheath via the right femoral vein. Procedure The patient underwent informed consent. We discussed the details of the procedure including the risks, which include, but not limited to bleeding, infection, vascular damage, cardiac perforation, and pneumothorax. Sheaths were positions using the modified Seldinger technique Capturing and sensing thresholds were verified. The patient was prepped and drapped in a sterile fashion. 2% lidocaine was infiltrated in the right groin area. The right femoral vein was accessed and a 6 Fr sheath was inserted. The temperary pacemaker was inserted. Capturing and sensing thresholds were verified. The rate was 80 with a MA of 5. The right femoral artery was accessed and a 5 Fr sheath was inserted for an ART line. The right femoral vein was accessed again for a venous line using a 5 Fr sheath. The temperary pacemaker was sutured and secure in place using a sterile dressing[place] [address] CARDIAC CATH REPORT Name: ELMERANIL A Room: [address] IN [facility]#: [id number] Admission: 01/28/20 Attend Phys: Adilson Cohen MD Discharge: 01/30/20 Date of : 56 Report #: [id number] Ventricular Threshold: less than 1.0 mA Complications The patient tolerated the procedure well and there were no complications associated with the procedure. Findings Specimens Removed: No Estimated Blood Loss: 5cc Conclusion 1. The patient presented with syncope at home, and paramedics noted the patient was hypotensive and bradycardic. CPR was initially administred for a short period of time. The patient was externally paced when she arrived in the ER. The patient was taken urgently to the senior label specialist. Her underlying rhthm appeared to be asystolic. The patient was paced via the pacing lead at the end of the procedure. Because of hypotension, the patient was start on IV Dopamine via the right femoral venous sheath. The patient was responsive at the end of the procedure and denied any complaints. Recommendations Treat hyperkalemia and elevated glucose. <ELECTRONICALLY SIGNED> By: Tl Holden MD, [facility] 01/31/2033 0933Daantione Holden MD, FAC /INF
--- NOTE | 2020-01-31 15:21 | CON ---
[address] [address] CONSULTATION Name: ANIL PAYNE Room: [address]#: [id number] Admission: 01/28/20 Attend Phys: Adilson Cohen MD Discharge: 01/30/20 Date of : 56 Report #: [id number] THIS REPORT FOR: //name// cc: Ava Benitez MD, Elizabeth MD ~ THIS REPORT FOR: //name// CC: Tl Rivero DATE OF SERVICE: 01/28/2020 CARDIOLOGY CONSULTATION HISTORY OF PRESENT ILLNESS: The patient is a 59-year-old white female who I was asked to see in the ICU today after she was noted to be bradycardic. The history is obtained from the patient's as well as some old records. The patient is currently drowsy. She was actually admitted here in 2017 after she was found to be unresponsive. She apparently had an accidental drug overdose. She was admitted here in 07/2019 with kidney stones. She has COPD and diabetes. She has had previous history of laparoscopic band surgery for obesity. According to the , she was doing well today, cleaning around the house. She did complain of feeling tired. She had no appetite at dinner. After dinner, she went to the bedroom and had a brief loss of consciousness. There was no seizure activity. She woke up and the took her to the bathroom. She sat on the toilet and apparently had another syncopal spell. Paramedics were called. When the paramedics got there, she was unresponsive. CPR was started. She then awakened. Heart rate was only in the 20s. She was externally paced. When she got to the Emergency Room, she was drowsy. She denied any complaints. She was externally paced. She was noted to be hyperkalemic and she was given insulin and D50. I was asked to see her on an emergent basis. PAST MEDICAL HISTORY: Significant for laparoscopic band surgery years ago for obesity, hysterectomy, Charcot foot, she has a history of hypertension, diabetes, and hyperlipidemia. MEDICATIONS: Consists of carvedilol, Xanax, aspirin, Victoza, Levemir, and hydrocodone. ALLERGIES: She has no known drug allergies. FAMILY HISTORY: Mother had heart disease. SOCIAL HISTORY: She is . She and her live in [place] [address] CONSULTATION Name: ANIL PAYNE Room: [address]#: [id number] Admission: 01/28/20 Attend Phys: Adilson Cohen MD Discharge: 01/30/20 Date of : 56 Report #: [id number] is on disability. Smokes half pack of cigarettes a day. No alcohol abuse. REVIEW OF SYSTEMS: She has no history of stroke. She has COPD, uses inhaler. No history of liver disease. She has had kidney stones. No cancer. She has a history of PAD with previous stent in her right lower extremity after she had sores on her feet that would not heel. No psychiatric illness. No chronic skin condition. PHYSICAL EXAMINATION: GENERAL: Revealed an elderly female who was drowsy. She would awaken on voice commands. HEENT: She was anicteric. Conjunctivae are pink. Mucous membranes were dry. NECK: Veins do not appear distended. CHEST: Clear to auscultation. CARDIOVASCULAR: Regular rate and rhythm. ABDOMEN: Soft. EXTREMITIES: Had no edema. SKIN: Warm and dry. RADIOLOGICAL DATA: Initial ECG with external patches showed a paced rhythm. Her underlying rhythm appeared to be asystole. The patient actually had an echocardiogram in 2017 when she was here at [facility] that showed ejection fraction 60% with left ventricular hypertrophy. Her x-rays, she had portable chest x-ray in the Emergency Room today that showed normal heart size and opacity in the left lower lobe consistent with atelectasis versus aspiration. LABORATORY DATA: In the Emergency Room, sodium 134, potassium is 7.9, BUN 24, and creatinine 2.5, it was 2.0 in 2017. Glucose 572. CO2 of 20. Liver function was normal. Albumin 2.7. Lactic acid was not obtained. Troponin 0.06. Her white blood cell count is 12.4 and hemoglobin 12.7. IMPRESSION AND RECOMMENDATIONS: 1. Asystole, suspect secondary to hyperkalemia. I would recommend normalizing the potassium levels. In the meantime, I will place a temporary pacer lead. 2. Syncope, suspect secondary to asystole. 3. Peripheral arterial disease with previous stent. 4. Acute on chronic kidney disease. 5. Diabetes. 6. History of hypertension. The patient is on a beta sam. 7. History of hyperlipidemia. 8. [place] [address] CONSULTATION Name: ANIL PAYNE Room: [address] [facility].#: [id number] Admission: 01/28/20 Attend Phys: Adilson Cohen MD Discharge: 01/30/20 Date of : 56 Report #: [id number] 9. Chronic obstructive pulmonary disease. 10. Kidney stones. <ELECTRONICALLY SIGNED> By: Tl Holden MD, FACC 01/31/20 1521 2233 0002Davipark Holden MD, FACC /nt
== END 2020-01-30 13:15 | disposition home or self-care (01) | DRG 308 ==
LOC: M.ERS 20:19 → M.ICU 21:00 → M.TBA-CV 21:00 → M.ICU 23:00
PROVIDERS: Family Medicine; Internal Medicine Cardiovascular Disease; ADMIT Internal Medicine
PROC: 5A1223Z Performance of Cardiac Pacing, Continuous (ICD-10-PCS; principal; 2020-01-28)
PROC: 04HY32Z Insertion of Monitoring Device into Lower Artery, Percutaneous Approach (ICD-10-PCS; principal; 2020-01-28)
DX: I44.2 Atrioventricular block, complete (principal); I46.9 Cardiac arrest, cause unspecified; N17.0 Acute kidney failure with tubular necrosis; J69.0 Pneumonitis due to inhalation of food and vomit; E87.2 Acidosis; J96.11 Chronic respiratory failure with hypoxia; J44.9 Chronic obstructive pulmonary disease, unspecified; E78.5 Hyperlipidemia, unspecified; E11.40 Type 2 diabetes mellitus with diabetic neuropathy, unspecified; I45.9 Conduction disorder, unspecified; E66.9 Obesity, unspecified; E87.5 Hyperkalemia; E11.51 Type 2 diabetes mellitus with diabetic peripheral angiopathy without gangrene; N20.0 Calculus of kidney; N18.3 Chronic kidney disease, stage 3 (moderate); E11.22 Type 2 diabetes mellitus with diabetic chronic kidney disease; I12.9 Hypertensive chronic kidney disease with stage 1 through stage 4 chronic kidney disease, or unspecified chronic kidney disease; E11.65 Type 2 diabetes mellitus with hyperglycemia; F41.1 Generalized anxiety disorder; K75.89 Other specified inflammatory liver diseases; Z95.820 Peripheral vascular angioplasty status with implants and grafts; Z87.891 Personal history of nicotine dependence; Z90.710 Acquired absence of both cervix and uterus; Z79.891 Long term (current) use of opiate analgesic; Z79.899 Other long term (current) drug therapy; Z87.01 Personal history of pneumonia (recurrent); Z82.49 Family history of ischemic heart disease and other diseases of the circulatory system; Z68.29 Body mass index [BMI] 29.0-29.9, adult

== ENCOUNTER → 2020-12-18 | Outpatient (CLI) | payer OTHER, MEDICARE ==
[~2020-12-18] MED LIST changes: +CARVEDILOL12.5 MG PO; +COZAAR 25 MG TA25 M1 PO; +DILTIAZEM ER180 M2 PO; +ESCITALOPRA5 MG/5 ML PO; +FENOFIBRATE160 MG PO; +HYDRALAZINE 5050 MG PO; +HYDROXYZINE HCL25 M2 PO; +LOSARTAN-HCTZ1 EAC3 PO; +METFORMIN HCL500 M3 PO; +NORVASC 2.5 MG2.5 M1 PO; +PAXIL40 MG PO; +PREDNISONE 5 MG5 M1 PO; +PREGABALIN50 MG PO; +ROSUVASTATIN CA40 MG PO; +XANAX1 MG PO
== END ==
LOC: M.RAD 14:48
PROVIDERS: ATTEND Internal Medicine Endocrinology, Diabetes & Metabolism
DX: Z12.31 Encounter for screening mammogram for malignant neoplasm of breast (principal)

== ENCOUNTER 2021-02-07 10:14 | Emergency (ER) | payer OTHER, MEDICARE ==
[~2021-02-07] VITALS: Ht 152.4 cm; Wt 65.3 kg
[2021-02-07] MEDS ORDERED: CLONAZEPAM 0.50.5 M1 PO (10:34)
[2021-02-07] MEDS ORDERED: VITAMIN D325 MC5 PO (10:35)
[2021-02-07] MEDS ORDERED: FLORANEX TABLE1 EACH PO (10:35)
[2021-02-07] MEDS ORDERED: MAGNESIUM250 M1 PO (10:35)
[2021-02-07] MEDS ORDERED: EFFER-K 10 MEQ10 ME1 PO (10:35)
[2021-02-07 10:54] LABS: ABSOLUTE EOSINOPHILS 0.1 thou/uL (0.0-0.7); ABSOLUTE LYMPHOCYTES 1.4 thou/uL (0.8-5.3); ABSOLUTE MONOCYTES 0.5 thou/uL (0.0-1.2); ABSOLUTE NEUTROPHILS 3.1 thou/uL (1.6-8.1); BASOPHILS 0.6 %; EOSINOPHILS 2.5 %; HEMATOCRIT 39.4 % (37.0-47.0); HEMOGLOBIN 12.7 gm/dL (12.0-15.0); LYMPHOCYTES 26.5 %; MCH 27.5 pg (26.0-34.0); MCHC 32.3 g/dL (28.0-37.0); MCV 85.1 fL (80.0-100.0); MONOCYTES 10.4 %; MPV 7.2 fl. (7.2-11.1); NUCLEATED RBCS 0 /100WBC; PLATELET COUNT* 233 thou/uL (150-400); RBC 4.63 mil/uL (4.20-5.00); RDW-CV 15.1 % (10.5-14.5); WBC 5.2 thou/uL (4.0-11.0)
[2021-02-07 11:03] LABS: CALCIUM 8.8 mg/dL (8.5-10.1); CREATININE 1.1 mg/dL (0.6-1.3); POTASSIUM 3.7 mmol/L (3.5-5.1)
[2021-02-07 11:08] LABS: ALBUMIN 3.1 g/dL (3.4-5.0); TOTAL BILIRUBIN 0.3 mg/dL (<0.1-1.0); TOTAL PROTEIN 6.6 g/dL (6.4-8.2)
[2021-02-07] MEDS ORDERED: VENTOLIN HFA 1818 GM INH (11:45)
[2021-02-07] MEDS ORDERED: AUGMENTIN 875-1 EACH PO (11:45)
[2021-02-07] MEDS ORDERED: PREDNISONE50 MG PO (11:45)
[2021-02-07 12:05] VITALS: BP 134/52
--- NOTE | 2021-02-07 15:22 | EKG ---
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 Device Assembler: JANELLE : 1960 Requested By: Duncan Madrid Order Number: [id number] MD: Tl Holden Measurements Intervals [place] Rate: 73 P: CT: QRS: 48 QRSD: 137 T: 20 QT: 414 QTc: 457 Interpretive Statements sinus rhythm artifact noted Right bundle branch block Compared to ECG 01/28/2020 20:21:46 systole no longer noted Electronically Signed On 02-07-2021 15:21:54 CDT by Tl Holden [email or web address] <ELECTRONICALLY SIGNED> By: Tl Holden MD, [facility] 02/07/21 1521 1105 1105 Tl Holden MD, [facility] /EPI
== END 2021-02-07 12:05 | disposition home or self-care (01) ==
LOC: M.ERS 10:14
PROVIDERS: Emergency Medicine Emergency Medical Services
DX: J44.1 Chronic obstructive pulmonary disease with (acute) exacerbation (principal); I10 Essential (primary) hypertension; E11.40 Type 2 diabetes mellitus with diabetic neuropathy, unspecified; Z87.891 Personal history of nicotine dependence; Z79.82 Long term (current) use of aspirin; Z79.899 Other long term (current) drug therapy; Z79.4 Long term (current) use of insulin; Z87.01 Personal history of pneumonia (recurrent)